=== PATIENT | male | born 1955 | race African-American/Black ===

== ENCOUNTER 2017-02-13 09:57 | Emergency (ER) | payer SELFPAY ==
[~2017-02-13] VITALS: Ht 182.9 cm; Wt 76.8 kg
[2017-02-13] MEDS ORDERED: HYDR-3343 PO (11:20)
[2017-02-13] MEDS ORDERED: NIFE90TA8 PO (11:20)
[2017-02-13 11:22] VITALS: BP 109/88
[2017-02-13] MEDS ORDERED: LOVA40TA2 PO (11:23)
[2017-02-13 11:29] LABS: BLOOD UREA NITROGEN 17 mg/dL (7-18)
[2017-02-13 11:33] LABS: IS PT STATUS REG ER OR PRE ER? YES
== END 2017-02-13 12:23 | disposition home or self-care (01) ==
LOC: ED 12:15
DX: B35.3 Tinea pedis (principal)
CPT/HCPCS: 36415; 71020; 80048; 82040; 84484; 85025; 93005; 99285

== ENCOUNTER 2017-02-18 09:06 | Emergency (ER) | payer SELFPAY ==
[~2017-02-18] VITALS: Ht 182.9 cm; Wt 77.0 kg
[~2017-02-18 09:06] MED LIST: HYDR-3343 PO; LOVA40TA2 PO; NIFE90TA8 PO
[2017-02-18 09:13] VITALS: BP 113/75
== END 2017-02-18 09:44 | disposition home or self-care (01) ==
LOC: ED 09:20
DX: B35.3 Tinea pedis (principal)
CPT/HCPCS: 99283

== ENCOUNTER 2017-12-12 23:20 | Emergency (ER) | payer MEDICAID ==
[~2017-12-12] VITALS: Ht 182.9 cm; Wt 77.7 kg
[2017-12-12 23:22] VITALS: BP 143/91
[2017-12-12] MEDS ORDERED: HYDROcodone/APAP 5/325 TABLET ONE (23:42)
[2017-12-12] MEDS ORDERED: HYDROcodone/APAP 5/325 TABLET PO STA (23:42)
== END 2017-12-13 00:15 | disposition home or self-care (01) ==
LOC: ED 23:58
DX: K08.89 Other specified disorders of teeth and supporting structures (principal)
CPT/HCPCS: 99283

== ENCOUNTER 2017-12-28 17:17 | Emergency (ER) | payer SELFPAY ==
[~2017-12-28] VITALS: Ht 182.9 cm; Wt 79.3 kg
[2017-12-28] MEDS ORDERED: OXYcodone/APAP 5/325MG TABLET ONE (18:16)
[2017-12-28] MEDS ORDERED: OXYcodone/APAP 5/325MG TABLET PO ONE (18:30)
[2017-12-28 18:33] VITALS: BP 160/104
== END 2017-12-28 18:52 | disposition home or self-care (01) ==
LOC: ED 18:30
DX: K02.9 Dental caries, unspecified (principal); F17.200 Nicotine dependence, unspecified, uncomplicated; I10 Essential (primary) hypertension
CPT/HCPCS: 99283

== ENCOUNTER 2018-01-05 14:59 | Emergency (ER) | payer MEDICAID, OTHER ==
[~2018-01-05] VITALS: Ht 182.9 cm; Wt 79.3 kg
[2018-01-05 15:05] VITALS: BP 150/104
[2018-01-05] MEDS ORDERED: HYDROcodone/APAP 5/325 TABLET PO ONE (16:00)
[2018-01-05] MEDS ORDERED: HYDROcodone/APAP 5/325 TABLET ONE (16:11)
== END 2018-01-05 16:33 | disposition home or self-care (01) ==
LOC: ED 16:25
DX: K08.89 Other specified disorders of teeth and supporting structures (principal); I10 Essential (primary) hypertension
CPT/HCPCS: 99281; 99283

== ENCOUNTER 2020-07-23 13:48 | Emergency (ER) | payer MEDICARE, MEDICAID ==
[~2020-07-23] VITALS: Ht 182.9 cm; Wt 92.1 kg
[2020-07-23 13:49] VITALS: BP 154/118
== END 2020-07-23 14:42 | disposition home or self-care (01) ==
LOC: ED 14:00
DX: I10 Essential (primary) hypertension (principal); Z76.0 Encounter for issue of repeat prescription; F17.200 Nicotine dependence, unspecified, uncomplicated
CPT/HCPCS: 99281

== ENCOUNTER 2020-09-05 04:51 | Emergency (ER) | payer MEDICARE, MEDICAID ==
[~2020-09-05] VITALS: Ht 182.9 cm; Wt 91.0 kg
--- NOTE | 2020-09-05 05:03 | NUR ---
PT REPORTS COMING INTO THE ED WITH A C/O "IM STAYING IN A PLACE AND IT HAS BED BUGS AND NOW I HAVE BED BUGS"... "I ALSO NEED SOMETHING TO HELP ME SLEEP CAUSE FOR THE PAST WEEK I CANT". PT NAD, SMOOTH AND STEADY GAIT, PT REPORTS SHOWERING AND CHANGING INTO CLEAN CLOTHES POST ANESTHESIA ROOM NURSE, NO BUGS NOTED IN TRIAGE. PT PLACED ON SPO2/BP MONITORING IN [place]. WAITING FOR PROVIDER JOSE MIGUEL RICHARDSON.
[2020-09-05 05:37] VITALS: BP 132/77
--- NOTE | 2020-09-05 05:41 | NUR ---
Patient given discharge instructions and they have confirmed that they understand the instructions. Patient ambulatory with steady gait. NAD, DENIES ADDITIONAL NEEDS, ALL QUESTIONS ANSWERED APPROPRIATELY. OFFERED [facility], DENIES WANTING IT.
== END 2020-09-05 05:43 | disposition home or self-care (01) ==
LOC: ED 05:37
DX: S10.96XA Insect bite of unspecified part of neck, initial encounter (principal); S30.860A Insect bite (nonvenomous) of lower back and pelvis, initial encounter; S70.361A Insect bite (nonvenomous), right thigh, initial encounter; S70.362A Insect bite (nonvenomous), left thigh, initial encounter; S40.862A Insect bite (nonvenomous) of left upper arm, initial encounter; S40.861A Insect bite (nonvenomous) of right upper arm, initial encounter; F51.01 Primary insomnia; I10 Essential (primary) hypertension; W57.XXXA Bitten or stung by nonvenomous insect and other nonvenomous arthropods, initial encounter; Y93.89 Activity, other specified; Y92.009 Unspecified place in unspecified non-institutional (private) residence as the place of occurrence of the external cause; Y99.8 Other external cause status
CPT/HCPCS: 99283

== ENCOUNTER 2020-09-25 07:09 | Emergency (ER) | payer MEDICAID, MEDICARE ==
[~2020-09-25] VITALS: Ht 182.9 cm; Wt 88.5 kg
[2020-09-25 07:14] VITALS: BP 120/85
== END 2020-09-25 07:49 | disposition home or self-care (01) ==
LOC: ED 07:40
DX: I10 Essential (primary) hypertension (principal); F17.200 Nicotine dependence, unspecified, uncomplicated; Z76.0 Encounter for issue of repeat prescription; Z85.46 Personal history of malignant neoplasm of prostate
CPT/HCPCS: 99281